=== PATIENT | male | born 1985 | race Two or more races ===

== ENCOUNTER 2021-02-17 11:26 | Emergency (ER) | payer MEDICAID, SELFPAY ==
[2021-02-17 11:36] VITALS: BP 106/76; PULSE 92; RESP 16; TEMP 36.7; O2SAT 99; BMI 23.0
--- NOTE | 2021-02-17 11:46 | ED.GENADULT ---
HPI - General Adult General Chief complaint: Ear Problems Stated complaint: rt ear pain Time Seen by Provider: 02/17/21 11:46 Source: patient Limitations: no limitations History of Present Illness HPI narrative: Patient presents to the ER complaining of right-sided ear pain. Patient received a 2nd dose of the med during her COVID-19 vaccine on February 05. Patient states he has had some chest wall pain and slight shortness of breath since. And some overall body aches and feeling tired. 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 Patient currently denies nausea vomiting or active chest pain at this time. Patient has no travel history. No other complaints. Patient denies any discharge from his right ear. Related Data Previous Rx's Medication Instructions Recorded carbamide peroxide 6.5 % ear drops 5 drp OTIC (EAR) RIGHT DAILY 4 02/17/21 (Debrox) Days ml Allergies Allergy/AdvReac Type Severity Reaction Status Date / Time No Known Allergies Allergy Unverified 03/04/20 15:52 Review of Systems Constitutional: Constitutional: Reports body ache(s), Denies chills, Reports fatigue, Denies fever(s) and Denies weight loss Eyes: Eyes: Denies loss of vision ENT: Denies nasal congestion and Denies sore throat Cardiovascular: Cardiovascular: Reports chest pain (Currently resolved) and Denies dyspnea Respiratory: Respiratory: Denies cough and Denies dyspnea Gastrointestinal: Gastrointestinal: Denies diarrhea, Denies nausea and Denies vomiting Musculoskeletal: Musculoskeletal: Denies back pain and Reports myalgias Neurologic: Denies loss of vision Endocrine: Endocrine: Reports fatigue PMFSH Past Medical History Attestation statement: The following information was validated with the patient. Medical History COPD (chronic obstructive pulmonary disease) Dermatitis, seborrheic Social History Social History Advance Directives: No Advance Directives Information Provided: No Physical Exam Vital Signs: Vital Signs: Last Vital Signs Temp 98.0 F 02/17/21 11:36 Pulse 92 02/17/21 11:36 Resp 16 02/17/21 11:36 BP 106/76 02/17/21 11:36 Pulse Ox 99 02/17/21 11:36 Body Mass Index 23.0 vital signs have been reviewed as normal and appeared to be correct. Blood pressure normal. Heart rate normal. Respiration rate normal. Temperature normal. Oxygen saturation normal. Appearance: Alert. Oriented X3. No acute distress. Head: Normal external exam. Normocephalic. Atraumatic. Eyes: PERRLA. EOMI. Conjunctiva and sclera normal. Eyelids normal. ENT: Pharynx normal. Uvula midline. Moist mucous membranes. Right ear positive cerumen but TM visualized no erythema of the canal. Left ear is clear. Neck: Soft full range of motion CVS: Heart regular rate and rhythm no murmurs and rubs Respiratory: Breath sounds are clear to auscultation bilaterally. No accessory muscle use noted. Abdomen: Soft nontender no rebound or guarding positive bowel sounds Back: Full range of motion noted. Skin: Skin warm and dry. Normal skin color. Normal skin turgor. No rashes/lesions/lacerations noted. Extremities: No lower extremity edema. Extremities exhibit normal range of motion. Extremities nontender. Neuro: Oriented X 3. No motor deficit. No sensory deficit. Reflexes normal. Course Course Course Narrative: Right ear otitis media Right ear otitis externa Right ear cerumen impaction COVID-19 screening Vaccine side effect COVID-19 swab obtained at this time. Right ear does not need to be irrigated as TM is visualized and patient has a mild amount of cerumen in place Not irrigate the right ear at this time is TMs visualized in this small amount of cerumen present COVID-19 test is negative Medical Decision Making Lab Data Labs: Lab Results 02/17/21 Range/Units 11:50 COVID-19 ([facility]) Negative (Negative) COVID-19 Clin Com See Note Discharge Plan Discharge Clinical Impression: Cerumen impaction Patient Disposition: Home, Self-Care Instructions: Earache (ED) Additional Instructions: COVID-19 test is negative Do not use Q-tips in her right ear It is important to follow-up with PCP Prescriptions: New carbamide peroxide [Debrox] 6.5 % drops 5 drp otic (ear) right DAILY 4 Days RF: 0 Referrals: Isidro Rosales MD [Primary Care Provider] - 2 days Interventions: ED Discharge Assessment Last Done: 02/17/21 12:28 Discharge Date/Time: 02/17/21 12:29
[2021-02-17 12:20] LABS: COVID-19 Test Negative (Negative); IDNOW Serial# 55D5AD1C
== END 2021-02-17 12:29 | disposition home or self-care (01) ==
PROVIDERS: Physician Assistant; Emergency Provider Emergency Medicine; PCP Internal Medicine
DX: H92.01 Otalgia, right ear (principal); H61.21 Impacted cerumen, right ear; Z20.822 Contact with and (suspected) exposure to COVID-19; Z79.899 Other long term (current) drug therapy
CPT/HCPCS: 36415; 87635; 99283

== ENCOUNTER 2021-02-24 14:27 | Emergency (ER) | payer MEDICAID, SELFPAY ==
--- NOTE | ~2021-02-24 | XR_ITS ---
EXAMINATION: XR CHEST CLINICAL INFORMATION: Chest pain COMPARISON: Chest radiographs 03/27/2016, 04/14/2014 TECHNIQUE: Frontal view of the chest was obtained. FINDINGS: Lungs are clear. There is no airspace consolidation, pneumothorax, groundglass opacity, or effusion. The costophrenic sulci are clear. The heart is normal in size. The vascularity is normal. The hilar and mediastinal contours and visualized bony structures are unremarkable. XR/XR chest 1V IMPRESSION: Unremarkable examination.
[2021-02-24 14:51] VITALS: BP 109/72; PULSE 85; RESP 16; TEMP 36.9; O2SAT 98; BMI 23.0
--- NOTE | 2021-02-24 14:55 | ECG_ITS ---
Test Reason : DYSPNEA Blood Pressure : / mmHG Vent. Rate : 071 BPM Atrial Rate : 071 BPM P-R Int : 104 ms QRS Dur : 086 ms QT Int : 354 ms P-R-T Axes : 000 074 040 degrees QTc Int : 384 ms Sinus rhythm with short VT Otherwise normal ECG When compared with ECG of 27-MAR-2016 10:28, No significant change was found Referred By: Generic ED Physician Electronically Signed By:ERICH KIDD
[2021-02-24 16:20] LABS: MANUAL DIFF FLAG NO
[2021-02-24 16:22] LABS: Basophils Absolute Auto 0.1 X10*3/uL (0.0-0.2); Basophils Percent Auto 0.5 % (0-2); Eosinophils Absolute Auto 0.2 X10*3/uL (0.0-0.4); Eosinophils Percent Auto 1.9 % (0-4); Hematocrit 44.2 % (42-52); Hemoglobin 14.2 g/dl (14.0-18.0); Imm Gran Abs Auto 0.02 X10*3/uL (0.00-0.03); Imm Gran Pct Auto 0.2 % (0.0-0.4); Lymphocytes Absolute Auto 2.7 X10*3/uL (1.2-4.9); Lymphocytes Percent Auto 25.4 % (20-40); Mean Corpuscular HGB Conc 32.1 g/dl (31.0-36.0); Mean Corpuscular Hemoglobin 27.2 pg (27.0-33.0); Mean Corpuscular Volume 84.7 fL (80-98); Mean Platelet Volume 10.2 fL (9.4-12.4); Monocytes Absolute Auto 0.9 X10*3/uL (0.1-1.2); Monocytes Percent Auto 8.6 % (2-11); Neutrophils Absolute Auto 6.6 X10*3/uL (2.0-8.3); Neutrophils Percent Auto 63.4 % (45-73); Platelet Count 274 X10*3/uL (160-400); Red Blood Count 5.22 X10*6/uL (4.60-5.80); Red Cell Distribution Width 13.8 % (11.0-16.0); White Blood Count 10.4 X10*3/uL (4.8-10.8)
[2021-02-24 16:37] LABS: Anion Gap 10 (12-20); Blood Urea Nitrogen 16 mg/dL (9-16); Calcium 10.1 mg/dL (8.4-10.2); Carbon Dioxide 29 mmol/L (22-29); Chloride 104 mmol/L (96-108); Creatinine Clr Calc Pharmacy 129.3; Estimated Glomerular Filt Rate > 60; Glucose Random 82 mg/dL (60-115); Potassium 4.2 mmol/L (3.3-5.1); Sodium 139 mmol/L (135-145)
[2021-02-24 16:44] LABS: B Type Natriuretic Peptide < 10 pg/mL (<100); Troponin-I High Sensitivity 4.8 ng/L (<3.5-35.0)
[2021-02-24 16:52] LABS: COVID-19 Test Negative (Negative); IDNOW Serial# 9DD0AD1C
[2021-02-24 17:16] LABS: Appearance Urine CLEAR; Color Urine YELLOW; Glucose Urine UA NEG (NEG); Leukocyte Esterase Urine NEG (NEG); Nitrite Urine NEG (NEG); Specific Gravity - Urine <= 1.005 (1.005-1.025); Urine Blood NEG (NEG); Urine Ketones NEG (NEG); Urine Protein NEG (NEG-TRACE)
== END 2021-02-24 19:51 | disposition left against medical advice (07) ==
PROVIDERS: Emergency Provider Emergency Medicine
DX: R07.9 Chest pain, unspecified (principal); J44.9 Chronic obstructive pulmonary disease, unspecified; R06.02 Shortness of breath; Z20.822 Contact with and (suspected) exposure to COVID-19
CPT/HCPCS: 36415; 71045; 80048; 81003; 83880; 84484; 85025; 87635; 93005; 99283